=== PATIENT | female | born 1955 | race Caucasian/White ===

== ENCOUNTER → 2019-07-02 | Outpatient (CLI) | payer OTHER ==
[~2019-07-02] MED LIST: ANTIVERT25 MG PO; ASPIR-TRIN325 MG PO; FIBER CHOICE1 CTB; FISH OIL 10001000 MG; GRX VITAMIN E1000 IU; HYDROCODONE BIT1 T11 PO; KEFLEX500 M1 PO; PERCOCET 325 MG1 TA5 PO; PREDNISONE10 MG PO; SEPTRA DS 800 M1 TAB PO
== END | disposition home or self-care (01) ==
LOC: LAB 13:11
DX: E55.9 Vitamin D deficiency, unspecified (principal); M81.0 Age-related osteoporosis without current pathological fracture

== ENCOUNTER → 2020-04-11 | Outpatient (CLI) | payer OTHER | END | disposition home or self-care (01) | LOC: ORTHO 12:56 | PROVIDERS: ATTEND Orthopaedic Surgery | DX: M25.511 Pain in right shoulder (principal) ==

== ENCOUNTER → 2022-12-17 | Outpatient (CLI) | payer OTHER | END | disposition home or self-care (01) | LOC: ORTHO 01:18 | PROVIDERS: ATTEND Orthopaedic Surgery | DX: M25.461 Effusion, right knee (principal); M25.561 Pain in right knee ==

== ENCOUNTER → 2023-01-05 | Day surgery (SDC) | payer MEDICARE ==
[~2023-01-05] VITALS: Ht 152.4 cm; Wt 61.7 kg
[2023-01-05 12:10] VITALS: BP 117/68
[2023-01-05 13:37] VITALS: BP 128/78
[2023-01-05 13:50] VITALS: BP 134/77
[2023-01-05 14:02] VITALS: BP 128/72
== END ==
LOC: SDC 12-30 13:15
PROVIDERS: ATTEND Ophthalmology
DX: H25.811 Combined forms of age-related cataract, right eye (principal); J18.9 Pneumonia, unspecified organism; Z98.818 Other dental procedure status; Z98.890 Other specified postprocedural states; Z88.0 Allergy status to penicillin

== ENCOUNTER 2023-10-30 11:01 | Emergency (ER) | payer MEDICARE ==
[~2023-10-30] VITALS: Ht 154.9 cm; Wt 63.5 kg
[2023-10-30] MEDS ORDERED: CEPHALEXIN500 M1 PO (11:52)
== END 2023-10-30 12:10 | disposition home or self-care (01) ==
LOC: ED 11:01
DX: L03.113 Cellulitis of right upper limb (principal); Z88.0 Allergy status to penicillin; Z98.890 Other specified postprocedural states

== ENCOUNTER 2024-04-26 08:09 | Emergency (ER) | payer MEDICARE ==
[~2024-04-26] VITALS: Wt 61.2 kg
[~2024-04-26 08:09] MED LIST changes: +CEPHALEXIN500 M1 PO
[2024-04-26] MEDS ORDERED: CALCIUM 500+D1 EAC2 PO (08:24)
[2024-04-26] MEDS ORDERED: TRAMADOL HCL50 MG PO (09:26)
== END 2024-04-26 09:29 | disposition home or self-care (01) ==
LOC: ED 08:09
DX: M25.562 Pain in left knee (principal); Z88.0 Allergy status to penicillin; Z98.890 Other specified postprocedural states

== ENCOUNTER → 2024-05-24 | Outpatient (CLI) | payer MEDICARE ==
[~2024-05-24] MED LIST changes: +CALCIUM 500+D1 EAC2 PO; +TRAMADOL HCL50 MG PO
== END | disposition home or self-care (01) ==
LOC: MRI 02:49
PROVIDERS: ATTEND Orthopaedic Surgery
DX: S83.242A Other tear of medial meniscus, current injury, left knee, initial encounter (principal); S83.412A Sprain of medial collateral ligament of left knee, initial encounter; M25.462 Effusion, left knee; X58.XXXA Exposure to other specified factors, initial encounter; Y93.89 Activity, other specified; Y92.89 Other specified places as the place of occurrence of the external cause; Y99.8 Other external cause status

== ENCOUNTER → 2024-08-20 | Outpatient (CLI) | payer MEDICARE | END | disposition home or self-care (01) | LOC: RAD 08:41 | PROVIDERS: ATTEND Orthopaedic Surgery | DX: M77.32 Calcaneal spur, left foot (principal); M72.2 Plantar fascial fibromatosis; M25.572 Pain in left ankle and joints of left foot ==

== ENCOUNTER → 2025-02-01 | Outpatient (CLI) | payer MEDICARE | END | disposition home or self-care (01) | LOC: ORTHO 08:48 | PROVIDERS: ATTEND Orthopaedic Surgery | DX: M25.511 Pain in right shoulder (principal); Z96.611 Presence of right artificial shoulder joint ==

== ENCOUNTER → 2025-02-06 | Outpatient (CLI) | payer MEDICARE | END | disposition home or self-care (01) | LOC: NM 02:04 | PROVIDERS: ATTEND Orthopaedic Surgery | DX: M84.311 Stress fracture, right shoulder (principal); Z96.651 Presence of right artificial knee joint; Z96.611 Presence of right artificial shoulder joint ==

== ENCOUNTER → 2025-02-14 | Outpatient (CLI) | payer MEDICARE | END | disposition home or self-care (01) | LOC: CT 00:30 | PROVIDERS: ATTEND Orthopaedic Surgery | DX: S22.41XA Multiple fractures of ribs, right side, initial encounter for closed fracture (principal); I70.0 Atherosclerosis of aorta; N20.0 Calculus of kidney; X58.XXXA Exposure to other specified factors, initial encounter; Y93.89 Activity, other specified; Y92.89 Other specified places as the place of occurrence of the external cause; Y99.8 Other external cause status ==